=== PATIENT | male | born 1945 ===

== ENCOUNTER 2020-08-12 11:15 | Inpatient (IN) | payer OTHER ==
[~2020-08-12] VITALS: Ht 167.6 cm; Wt 74.8 kg
[2020-08-12] MEDS ORDERED: TOPROL XL50 M1 PO (14:28)
[2020-08-12] MEDS ORDERED: TAMS0.4C PO (14:28)
[2020-08-12] MEDS ORDERED: GLIMEPIRIDE4 M1 PO (14:28)
[2020-08-12] MEDS ORDERED: SULINDAC200 MG PO (14:28)
[2020-08-12] MEDS ORDERED: MAXIMUM D3325 MCG PO (14:29)
[2020-08-12] MEDS ORDERED: MURI-LUBE MINERA2 ML (14:29)
[2020-08-12] MEDS ORDERED: CICLODAN90 GM TOP (14:30)
[2020-08-12] MEDS ORDERED: CVS SENNA PLUS1 EACH PO (14:30)
[2020-08-19] MEDS ORDERED: COLACE100 MG PO (15:55)
[2020-08-19] MEDS ORDERED: PERCOCET 5-3251 EACH PO (15:55)
[2020-08-19] MEDS ORDERED: DIAZEPAM5 MG PO (15:55)
== END 2020-08-20 11:58 | disposition home or self-care (01) | DRG 473 ==
LOC: O/R 08-19 05:56 → SURH 08-19 05:56
PROVIDERS: ADMIT Orthopaedic Surgery Orthopaedic Surgery of the Spine; ATTEND Orthopaedic Surgery Orthopaedic Surgery of the Spine
PROC: 0RT30ZZ Resection of Cervical Vertebral Disc, Open Approach (ICD-10-PCS; 2020-08-19)
PROC: 07DS3ZZ Extraction of Vertebral Bone Marrow, Percutaneous Approach (ICD-10-PCS; 2020-08-19)
PROC: 4A12X4Z Monitoring of Cardiac Electrical Activity, External Approach (ICD-10-PCS; 2020-08-19)
PROC: 0RG20A0 Fusion of 2 or more Cervical Vertebral Joints with Interbody Fusion Device, Anterior Approach, Anterior Column, Open Approach (ICD-10-PCS; principal; 2020-08-19 13:30)
DX: M50.01 Cervical disc disorder with myelopathy, high cervical region (principal); M50.021 Cervical disc disorder at C4-C5 level with myelopathy; M50.022 Cervical disc disorder at C5-C6 level with myelopathy; Z20.828 Contact with and (suspected) exposure to other viral communicable diseases